=== PATIENT | male | born 1965 | race Caucasian/White ===

== ENCOUNTER 2022-07-22 13:52 | Emergency (ER) | payer BC ==
[2022-07-22] MEDS ORDERED: Aspirin 81 MG Tab.Chew PO ONE (14:15)
[2022-07-22] MEDS ORDERED: Aspirin 81 MG Tab.Chew ONE (14:15)
[2022-07-22] MEDS ORDERED: Nitroglycerin 0.4 MG Tab.SL ONE (14:15)
[2022-07-22] MEDS: Nitroglycerin 0.4 MG Tab.SL SL PRN ×2 (14:16→14:21)
[2022-07-22] MEDS ORDERED: Sodium Chloride 0.9% 1,000 ML ONE (14:22)
[2022-07-22] MEDS ORDERED: Sodium Chloride 0.9% 1,000 ML IV ONE (14:22)
[2022-07-22] MEDS ORDERED: Labetalol 100 MG/20 ML MDV IVPUSH ONE (14:27)
[2022-07-22] MEDS ORDERED: Metoprolol Tartrate 5 MG/5 ML SDV IVPUSH ONE (14:30)
[2022-07-22 14:41] LABS: ANION GAP 14.4 mmol/L (5-15)
== END 2022-07-22 17:01 | disposition home or self-care (01) ==
LOC: KA.ED 13:52
DX: R07.89 Other chest pain (principal); R00.0 Tachycardia, unspecified; E11.65 Type 2 diabetes mellitus with hyperglycemia; Z88.0 Allergy status to penicillin
CPT/HCPCS: 36415; 71045; 80053; 84484; 85025; 93005; 93010; 96361; 96374; 99284; 99285-25; A9270-GY; J3490; J7030; Q3014